=== PATIENT | male | born 1955 | race Caucasian/White ===

== ENCOUNTER 2023-07-03 06:20 | Day surgery (SDC) | payer BC, SELFPAY ==
[2023-06-27 06:51] VITALS: BMI 38.1
[2023-06-27 08:55] LABS: % Basophils 0.5 % (0-2); % Eosinophils 1.1 % (0-6); % Immature Granulocytes 0.3 % (0-0.5); % Lymphocytes 28.9 % (20.5-51.1); % Monocytes 10.1 % (1.7-9.3); % Neutrophils 59.1 % (42.2-75.2); Absolute Eosinophils 0.1 10^3/uL (0-0.7); Absolute Lymphocytes 1.8 10^3/uL (1.2-3.4); Absolute Monocytes 0.6 10^3/uL (0.1-0.6); Absolute Neutrophils 3.6 10^3/uL (1.4-6.5); Hematocrit 44.6 % (39.0-52.0); Hemoglobin 15.3 g/dL (13.0-18.0); Mean Corp Hgb Conc. 34.3 g/dL (33.0-37.0); Mean Corpuscular Hgb 30.5 pg (27.0-31.0); Mean Platelet Volume 10.7 fL (7.4-10.4); Nucleated Red Blood Cells % 0 % (-); Platelet Count 233 10^3/uL (130-400); Red Blood Cell Count 5.01 10^6/uL (4.70-6.10); Red Cell Dist. Width 13.5 % (11.5-14.5); White Blood Cell Count 6.1 10^3/uL (4.8-10.8)
[2023-06-27 09:27] LABS: Glycohemoglobin (HgbA1c) 6.7 % (4.0-5.6)
[2023-06-27 09:46] LABS: Blood Urea Nitrogen 17 mg/dl (9-20); Calcium 8.8 mg/dl (8.4-10.2); Carbon Dioxide 28 mmol/L (22-30); Chloride 104 mmol/L (98-107); Estimated Creatinine Clearance > 125 ml/min; Glucose 111 mg/dl (70-99); Potassium 4.6 mmol/L (3.5-5.1); Sodium 139 mmol/L (135-145); eGFR > 60.00
[2023-07-03] VITALS (10 sets, daily range): BP systolic 132–150; BP diastolic 81–97; BMI 38.1
[2023-07-03 10:26] LABS: Glucose - Point of Care 90 mg/dl (70-99)
[2023-07-03] MEDS: TYLENOL 1000 MG PO (10:30)
[2023-07-03] MEDS: CELEBREX 200 MG PO (10:30)
[2023-07-03] MEDS: NORMOSOL-R 1000 IV (10:31)
--- NOTE | 2023-07-03 11:13 | CM ---
CM was consulted for home PT. CM update [facility] clinical rehab liaison with consult.
--- NOTE | 2023-07-03 14:46 | VNURNOTE ---
Home Health Liaison met with patient's Roselia at 1330 to discuss [facility] nurse/therapy, visits, schedule and homebound status. Roselia is agreeable and understands that visits at home will be 2-3 x per week to assess and teach medical management.
Patient is currently in surgery.
[facility] brochure provided with contact information. Roselia is aware that [facility] will contact them for start of care in 1-2 days after discharge from .
[facility] referral completed in [facility].
Roselia confirmed that patient has all necessary DME at home, Wheelchair and walker.
[2023-07-03 15:17] LABS: Glucose - Point of Care 137 mg/dl (70-99)
[2023-07-03 20:21] LABS: Hepatitis B Surface Antigen Negative (Negative)
[2023-07-03 20:39] LABS: Hepatitis C Antibody Negative (Negative)
[2023-07-04 13:30] LABS: HIV Combo Negative (Negative)
== END 2023-07-03 17:05 | disposition home or self-care (01) ==
LOC: SDS 06:20
PROVIDERS: ATTENDING PHYSICIAN Student in an Organized Health Care Education/Training Program; FAMILY PHYSICIAN Family Medicine; REFERRING PHYSICIAN Podiatrist
DX: M20.42 Other hammer toe(s) (acquired), left foot (principal); M20.32 Hallux varus (acquired), left foot; M14.672 Charcot's joint, left ankle and foot; M24.575 Contracture, left foot
CPT/HCPCS: 28750; 28285 ×3; 36415; 80048; 82962; 83036; 85025; 86803; 87340; 87389; 93005; 97162; C1713